=== PATIENT | female | born 1940 | race Hispanic/Latino ===

== ENCOUNTER → 2017-11-24 | Outpatient (CLI) | payer OTHER ==
[~2017-11-24] MED LIST: CHOL100040 PO; FLEX SEED OIL PO; GLUC-172 PO; LOSA1TAB37 PO; METF-444 PO; OMEP20CA10 PO; PRAV20TA4 PO; diltiazem PO
== END | disposition home or self-care (01) ==
LOC: RAH 08:32
PROVIDERS: ATTEND Family Medicine
DX: Z12.31 Encounter for screening mammogram for malignant neoplasm of breast (principal)
CPT/HCPCS: 77067

== ENCOUNTER → 2018-11-25 | Outpatient (CLI) | payer OTHER ==
[~2018-11-25] MED LIST changes: +OMEP-50 PO; -OMEP20CA10 PO
== END | disposition home or self-care (01) ==
LOC: RAH 10:13
PROVIDERS: ATTEND Family Medicine
DX: Z12.31 Encounter for screening mammogram for malignant neoplasm of breast (principal)
CPT/HCPCS: 77067

== ENCOUNTER → 2019-11-26 | Outpatient (CLI) | payer OTHER ==
[~2019-11-26] MED LIST changes: -OMEP-50 PO; +OMEP20CA12 PO
== END | disposition home or self-care (01) ==
LOC: RAH 09:26
PROVIDERS: ATTEND Family Medicine
DX: Z12.31 Encounter for screening mammogram for malignant neoplasm of breast (principal)
CPT/HCPCS: 77067

== ENCOUNTER → 2021-03-21 | Outpatient (CLI) | payer OTHER | END | disposition home or self-care (01) | LOC: RAH 13:20 | PROVIDERS: ATTEND Family Medicine | DX: Z12.31 Encounter for screening mammogram for malignant neoplasm of breast (principal) | CPT/HCPCS: 77067 ==

== ENCOUNTER 2021-06-12 14:17 | Inpatient (IN) | payer OTHER ==
[~2021-06-12] VITALS: Ht 152.4 cm; Wt 73.1 kg
[2021-06-12] MEDS ORDERED: GADOTERATE MEGLUMINE 10 MMOL/20 ML VIAL IV ONE (15:48)
[2021-06-12 15:52] LABS: BASOPHILS % (AUTO) 0.2 % (0.0-5.0); EOSINOPHILS % (AUTO) 1.2 % (0.0-8.0); HEMATOCRIT 39.5 % (36-48); LYMPHOCYTES % (AUTO) 28.7 % (21.0-51.0); MEAN CORPUSCULAR HEMOGLOBIN 26.7 pg (27.0-33.0); MEAN CORPUSCULAR HGB CONC 31.6 g/dL (32.0-36.0); MEAN CORPUSCULAR VOLUME 84.4 fL (79-99); MONOCYTES % (AUTO) 7.3 % (3.0-13.0); NEUTROPHILS % (AUTO) 62.3 % (40.0-77.0); PLATELET COUNT (AUTO) 389 K/uL (130-400); RED BLOOD CELL COUNT(AUTO) 4.68 MIL/uL (4.00-5.50); WHITE BLOOD COUNT (AUTO) 9.4 K/uL (4.8-10.8)
[2021-06-12] MEDS ORDERED: DEXAMETHASONE SOD PHOSPHATE 4 MG/ML 1ML VIAL IV ONE (16:00)
[2021-06-12 16:07] LABS: INR 0.98 (0.85-1.15); PROTHROMBIN TIME 10.7 SEC (9.6-11.6)
[2021-06-12 16:25] LABS: CREATININE 0.9 mg/dL (0.5-1.5); POTASSIUM 3.6 mmol/L (3.5-5.1)
[2021-06-12 16:30] LABS: ALBUMIN 3.7 g/dL (3.5-5.0); BILIRUBIN,TOTAL 0.2 mg/dL (0.2-1.0); TOTAL PROTEIN, SERUM 7.3 g/dL (6.0-8.3)
[2021-06-12] MEDS: LACTATED RINGERS 1000ML 1,000 ML IV SCH (17:45)
[2021-06-12] MEDS ORDERED: DEXTROSE 5%-LACTATED RINGERS 1,000 ML IV SCH (18:00)
[2021-06-12] MEDS ORDERED: DEXAMETHASONE SOD PHOSPHATE 4 MG/ML 1ML VIAL IV SCH (18:00)
[2021-06-12] MEDS ORDERED: ONDANSETRON 4MG INJ IVP PRN (18:30)
[2021-06-12] MEDS ORDERED: ALBUTEROL 0.083% 2.5 MG/3 ML INH IH PRN (18:30)
[2021-06-12] MEDS ORDERED: ACETAMINOPHEN 650 MG SUPPOSITORY RC PRN (18:30)
[2021-06-12] MEDS ORDERED: LACTULOSE 20 GM/30 ML UDCUP PO PRN (18:30)
[2021-06-12] MEDS ORDERED: TEMAZEPAM 15 MG CAPSULE PO PRN (18:30)
[2021-06-12] MEDS ORDERED: HYDRALAZINE 20MG/ML VIAL IV PRN (18:30)
[2021-06-12] MEDS ORDERED: DOCUSATE SODIUM 100 MG CAP PO PRN (18:30)
[2021-06-12] MEDS: ACETAMINOPHEN 325 MG TAB PO PRN (18:45)
[2021-06-12 19:45] VITALS: BP 175/78
[2021-06-12] MEDS: DEXAMETHASONE SOD PHOSPHATE 4 MG/ML 1ML VIAL IV SCH (22:02)
[2021-06-13] MEDS ORDERED: INSULIN HUMULIN R 100 UNIT/ML 3ML SQ SCH
[2021-06-13] MEDS: DEXAMETHASONE SOD PHOSPHATE 4 MG/ML 1ML VIAL IV SCH ×4 (03:20→20:09)
[2021-06-13 03:35] VITALS: BP 145/58
[2021-06-13 03:56] LABS: HEMATOCRIT 40.5 % (36-48); MEAN CORPUSCULAR HEMOGLOBIN 27.4 pg (27.0-33.0); MEAN CORPUSCULAR HGB CONC 33.3 g/dL (32.0-36.0); MEAN CORPUSCULAR VOLUME 82.2 fL (79-99); RED BLOOD CELL COUNT(AUTO) 4.93 MIL/uL (4.00-5.50); RED CELL DISTRIBUTION WIDTH 13.7 % (11.0-15.5); WHITE BLOOD COUNT (AUTO) 8.1 K/uL (4.8-10.8)
[2021-06-13 04:08] LABS: CREATININE 0.8 mg/dL (0.5-1.5); MAGNESIUM 1.9 mg/dL (1.80-2.40); PHOSPHORUS 2.5 mg/dL (2.5-4.9); POTASSIUM 3.8 mmol/L (3.5-5.1)
[2021-06-13 06:36] LABS: PROTHROMBIN TIME 10.9 SEC (9.6-11.6)
[2021-06-13] MEDS: INSULIN HUMULIN R 100 UNIT/ML 3ML SQ SCH ×4 (07:30→21:00)
[2021-06-13 07:48] VITALS: BP 156/68
[2021-06-13] MEDS: HEPARIN 5,000 UNIT VIAL SQ SCH ×2 (08:40→16:28)
[2021-06-13] MEDS: PANTOPRAZOLE 40 MG/VIAL IVP SCH (09:47)
[2021-06-13] MEDS: LACTATED RINGERS 1000ML 1,000 ML IV SCH ×2 (09:47→20:10)
[2021-06-13] MEDS: LOSARTAN/HYDROCHLOROTHIAZIDE 50-12.5MG TABLET PO SCH (09:47)
[2021-06-13 11:00] VITALS: BP 151/73
[2021-06-13 16:05] VITALS: BP 165/86
[2021-06-13 20:27] VITALS: BP 161/77
[2021-06-13] MEDS ORDERED: DILT240C94 PO (22:56)
[2021-06-14] VITALS (7 sets, daily range): BP systolic 120–166; BP diastolic 65–83
[2021-06-14] MEDS: DEXAMETHASONE SOD PHOSPHATE 4 MG/ML 1ML VIAL IV SCH ×4 (03:16→19:32)
[2021-06-14] MEDS: HEPARIN 5,000 UNIT VIAL SQ SCH ×2 (03:30→17:25)
[2021-06-14] MEDS: INSULIN HUMULIN R 100 UNIT/ML 3ML SQ SCH ×4 (05:26→21:09)
[2021-06-14] MEDS: PANTOPRAZOLE 40 MG/VIAL IVP SCH (09:32)
[2021-06-14] MEDS: LOSARTAN/HYDROCHLOROTHIAZIDE 50-12.5MG TABLET PO SCH (09:32)
[2021-06-14] MEDS: DILTIAZEM 120MG SR CAP PO SCH (09:33)
[2021-06-14] MEDS: ATORVASTATIN 10 MG TABLET PO SCH (19:33)
[2021-06-15] MEDS: DEXAMETHASONE SOD PHOSPHATE 4 MG/ML 1ML VIAL IV SCH ×4 (03:08→19:47)
[2021-06-15] MEDS: HEPARIN 5,000 UNIT VIAL SQ SCH ×2 (03:09→17:00)
[2021-06-15 03:59] VITALS: BP 131/66
[2021-06-15 04:43] LABS: HEMATOCRIT 37.2 % (36-48); MEAN CORPUSCULAR HEMOGLOBIN 27.6 pg (27.0-33.0); MEAN CORPUSCULAR HGB CONC 33.1 g/dL (32.0-36.0); MEAN CORPUSCULAR VOLUME 83.4 fL (79-99); RED BLOOD CELL COUNT(AUTO) 4.46 MIL/uL (4.00-5.50); RED CELL DISTRIBUTION WIDTH 13.8 % (11.0-15.5); WHITE BLOOD COUNT (AUTO) 15.2 K/uL (4.8-10.8)
[2021-06-15 04:54] LABS: CREATININE 0.8 mg/dL (0.5-1.5)
[2021-06-15] MEDS: INSULIN HUMULIN R 100 UNIT/ML 3ML SQ SCH ×4 (05:59→21:00)
[2021-06-15 07:15] VITALS: BP 150/78
[2021-06-15] MEDS: LOSARTAN/HYDROCHLOROTHIAZIDE 50-12.5MG TABLET PO SCH (10:32)
[2021-06-15] MEDS: DILTIAZEM 120MG SR CAP PO SCH (10:33)
[2021-06-15] MEDS: PANTOPRAZOLE 40 MG/VIAL IVP SCH (10:33)
[2021-06-15 11:23] VITALS: BP 156/76
[2021-06-15 16:11] VITALS: BP 139/64
[2021-06-15] MEDS: ATORVASTATIN 10 MG TABLET PO SCH (19:47)
[2021-06-15] MEDS: LEVETIRACETAM 500 MG TABLET PO SCH (19:47)
[2021-06-15 20:00] VITALS: BP 166/78
[2021-06-15 23:51] VITALS: BP 142/58
[2021-06-16] MEDS: DEXAMETHASONE SOD PHOSPHATE 4 MG/ML 1ML VIAL IV SCH ×3 (03:22→18:16)
[2021-06-16] MEDS: HEPARIN 5,000 UNIT VIAL SQ SCH ×2 (03:24→15:15)
[2021-06-16 04:32] LABS: HEMATOCRIT 37.9 % (36-48); MEAN CORPUSCULAR HEMOGLOBIN 26.7 pg (27.0-33.0); MEAN CORPUSCULAR HGB CONC 31.9 g/dL (32.0-36.0); MEAN CORPUSCULAR VOLUME 83.5 fL (79-99); RED BLOOD CELL COUNT(AUTO) 4.54 MIL/uL (4.00-5.50); RED CELL DISTRIBUTION WIDTH 13.7 % (11.0-15.5); WHITE BLOOD COUNT (AUTO) 11.9 K/uL (4.8-10.8)
[2021-06-16 04:36] LABS: CREATININE 0.9 mg/dL (0.5-1.5); POTASSIUM 4.1 mmol/L (3.5-5.1)
[2021-06-16 04:48] VITALS: BP 144/68
[2021-06-16] MEDS: INSULIN HUMULIN R 100 UNIT/ML 3ML SQ SCH ×4 (07:30→21:00)
[2021-06-16 08:22] VITALS: BP 144/74
[2021-06-16] MEDS: LOSARTAN/HYDROCHLOROTHIAZIDE 50-12.5MG TABLET PO SCH (11:04)
[2021-06-16] MEDS: PANTOPRAZOLE 40 MG/VIAL IVP SCH (11:04)
[2021-06-16] MEDS: LEVETIRACETAM 500 MG TABLET PO SCH ×2 (11:05→21:29)
[2021-06-16] MEDS: DILTIAZEM 120MG SR CAP PO SCH (11:05)
[2021-06-16 12:17] VITALS: BP 142/66
[2021-06-16 16:36] VITALS: BP 143/74
[2021-06-16 20:11] VITALS: BP 154/57
[2021-06-16] MEDS: ATORVASTATIN 10 MG TABLET PO SCH (21:29)
[2021-06-16 23:48] VITALS: BP 141/63
[2021-06-17] MEDS: DEXAMETHASONE SOD PHOSPHATE 4 MG/ML 1ML VIAL IV SCH ×4 (02:01→17:56)
[2021-06-17 03:59] VITALS: BP 155/66
[2021-06-17] MEDS: INSULIN HUMULIN R 100 UNIT/ML 3ML SQ SCH ×4 (07:06→21:39)
[2021-06-17 08:04] VITALS: BP 140/62
[2021-06-17] MEDS: PANTOPRAZOLE 40 MG/VIAL IVP SCH (08:44)
[2021-06-17] MEDS: LEVETIRACETAM 500 MG TABLET PO SCH ×2 (08:44→21:38)
[2021-06-17] MEDS: DILTIAZEM 120MG SR CAP PO SCH (08:45)
[2021-06-17] MEDS: LOSARTAN/HYDROCHLOROTHIAZIDE 50-12.5MG TABLET PO SCH (08:45)
[2021-06-17 12:19] VITALS: BP 156/57
[2021-06-17 17:09] VITALS: BP 132/56
[2021-06-17 20:17] VITALS: BP 146/63
[2021-06-17] MEDS: ATORVASTATIN 10 MG TABLET PO SCH (21:38)
[2021-06-17 23:52] VITALS: BP 137/62
[2021-06-18] VITALS (30 sets, daily range): BP systolic 94–186; BP diastolic 42–114
[2021-06-18] MEDS: DEXAMETHASONE SOD PHOSPHATE 4 MG/ML 1ML VIAL IV SCH ×5 (00:01→23:34)
[2021-06-18] MEDS: INSULIN HUMULIN R 100 UNIT/ML 3ML SQ SCH ×4 (06:55→20:15)
[2021-06-18] MEDS ORDERED: BUPIVACAINE/EPI/PF 0.5% 30ML VIAL IJ ONE (06:58)
[2021-06-18] MEDS ORDERED: THROMBIN-JMI 20000 UNIT KIT TP ONE (06:58)
[2021-06-18] MEDS ORDERED: CEFAZOLIN SODIUM 1 GM VIAL IVP PRN (07:00)
[2021-06-18] MEDS ORDERED: PHENYLEPHRINE HCL 10 MG/ML 1ML VIAL IV ONE ×2 (07:16→07:31)
[2021-06-18] MEDS ORDERED: SUCCINYLCHOLINE CHLORIDE 20 MG/ML 10 ML VIAL ONE (07:16)
[2021-06-18] MEDS ORDERED: LIDOCAINE PF 100MG/5ML (2%) SYRINGE 5ML ONE (07:16)
[2021-06-18] MEDS ORDERED: ROCURONIUM 10MG/1ML SYR 10 MG/ML ML ONE ×2 (07:16→08:10)
[2021-06-18] MEDS ORDERED: FENTANYL CITRATE PF 50 MCG/1 ML 2ML VIAL ONE ×2 (07:16→08:42)
[2021-06-18] MEDS ORDERED: PROPOFOL 10 MG/ML 20ML VIAL IV ONE (07:16)
[2021-06-18] MEDS: CEFAZOLIN SODIUM 1 GM VIAL ONE ×2 (07:30→12:30)
[2021-06-18] MEDS ORDERED: CEFAZOLIN SODIUM 1 GM VIAL ONE ×3 (07:52→09:50)
[2021-06-18] MEDS ORDERED: MANNITOL 20% 500ML BAG 500 ML IV ONE (07:52)
[2021-06-18] MEDS ORDERED: DEXAMETHASONE SOD PHOSPHATE 10MG/ML 1ML VIAL ONE (07:54)
[2021-06-18] MEDS ORDERED: GLYCOPYRROLATE 1 MG/5 ML SYRINGE ONE (08:29)
[2021-06-18] MEDS: LOSARTAN/HYDROCHLOROTHIAZIDE 50-12.5MG TABLET PO SCH (09:00)
[2021-06-18] MEDS: DILTIAZEM 120MG SR CAP PO SCH (09:00)
[2021-06-18] MEDS: LEVETIRACETAM 500 MG TABLET PO SCH ×2 (09:00→19:49)
[2021-06-18] MEDS ORDERED: ONDANSETRON 4MG INJ ONE (11:54)
[2021-06-18] MEDS ORDERED: NEOSTIGMINE 5MG/5ML SYR IV ONE (11:54)
[2021-06-18] MEDS ORDERED: HYDRALAZINE 20MG/ML VIAL ONE (12:19)
[2021-06-18] MEDS ORDERED: LACTATED RINGERS 1000ML 1,000 ML IV SCH (12:30)
[2021-06-18] MEDS: ACETAMINOPHEN 325 MG TAB PO PRN (19:49)
[2021-06-18] MEDS: ATORVASTATIN 10 MG TABLET PO SCH (19:49)
[2021-06-18] MEDS: CEFAZOLIN SODIUM 1 GM VIAL IVP SCH (19:50)
[2021-06-18] MEDS ORDERED: PHARMACY COMMUNICATION MISC SCH (21:00)
[2021-06-18] MEDS ORDERED: DILTIAZEM 120 MG PO SCH (21:00)
[2021-06-18] MEDS ORDERED: HYDRALAZINE HCL 10 MG TABLET PO PRN (21:30)
[2021-06-19] VITALS (43 sets, daily range): BP systolic 124–176; BP diastolic 46–88
[2021-06-19] MEDS: HYDRALAZINE HCL 10 MG TABLET PO PRN ×3 (00:28→07:41)
[2021-06-19] MEDS: CEFAZOLIN SODIUM 1 GM VIAL IVP SCH (03:17)
[2021-06-19] MEDS: ACETAMINOPHEN 325 MG TAB PO PRN ×2 (03:18→21:20)
[2021-06-19 03:50] LABS: HEMATOCRIT 40.4 % (36-48); MEAN CORPUSCULAR HEMOGLOBIN 27.3 pg (27.0-33.0); MEAN CORPUSCULAR HGB CONC 33.2 g/dL (32.0-36.0); MEAN CORPUSCULAR VOLUME 82.4 fL (79-99); RED BLOOD CELL COUNT(AUTO) 4.9 MIL/uL (4.00-5.50); RED CELL DISTRIBUTION WIDTH 14.3 % (11.0-15.5); WHITE BLOOD COUNT (AUTO) 20.2 K/uL (4.8-10.8)
[2021-06-19 04:11] LABS: CREATININE 0.9 mg/dL (0.5-1.5); MAGNESIUM 2.2 mg/dL (1.80-2.40); POTASSIUM 4.3 mmol/L (3.5-5.1)
[2021-06-19] MEDS: INSULIN HUMULIN R 100 UNIT/ML 3ML SQ SCH ×4 (05:08→21:11)
[2021-06-19] MEDS: DEXAMETHASONE SOD PHOSPHATE 4 MG/ML 1ML VIAL IV SCH ×3 (05:37→17:13)
[2021-06-19] MEDS: METFORMIN HCL 500 MG TABLET PO SCH (08:04)
[2021-06-19] MEDS: FLEX SEED OIL PO SCH (08:04)
[2021-06-19] MEDS: OSTEO BI FLEX PO SCH (08:04)
[2021-06-19] MEDS: LOSARTAN/HYDROCHLOROTHIAZIDE 50-12.5MG TABLET PO SCH (08:04)
[2021-06-19] MEDS: PANTOPRAZOLE 40 MG TAB DR PO SCH (08:04)
[2021-06-19] MEDS: LEVETIRACETAM 500 MG TABLET PO SCH ×2 (08:04→21:06)
[2021-06-19] MEDS: DILTIAZEM 120MG SR CAP PO SCH (08:04)
[2021-06-19] MEDS: **HM** VIT D3 1000 UNITS PO SCH (08:05)
[2021-06-19] MEDS ORDERED: LOSARTAN/HYDROCHLOROTHIAZIDE 50-12.5MG TABLET PO SCH (09:00)
[2021-06-19] MEDS: ATORVASTATIN 10 MG TABLET PO SCH (21:05)
[2021-06-20] MEDS: DEXAMETHASONE SOD PHOSPHATE 4 MG/ML 1ML VIAL IV SCH ×2 (00:50→07:30)
[2021-06-20 03:58] LABS: BASOPHILS % (AUTO) 0.2 % (0.0-5.0); HEMATOCRIT 37.8 % (36-48); LYMPHOCYTES % (AUTO) 5.6 % (21.0-51.0); MEAN CORPUSCULAR HEMOGLOBIN 26.6 pg (27.0-33.0); MEAN CORPUSCULAR VOLUME 83.1 fL (79-99); MONOCYTES % (AUTO) 6.4 % (3.0-13.0); NEUTROPHILS % (AUTO) 86.6 % (40.0-77.0); PLATELET COUNT (AUTO) 333 K/uL (130-400); RED BLOOD CELL COUNT(AUTO) 4.55 MIL/uL (4.00-5.50); RED CELL DISTRIBUTION WIDTH 14.4 % (11.0-15.5); WHITE BLOOD COUNT (AUTO) 17.9 K/uL (4.8-10.8)
[2021-06-20 04:08] VITALS: BP 127/56
[2021-06-20 04:16] LABS: ALBUMIN 2.4 g/dL (3.5-5.0); BILIRUBIN,TOTAL 0.4 mg/dL (0.2-1.0); CREATININE 0.8 mg/dL (0.5-1.5); MAGNESIUM 2.3 mg/dL (1.80-2.40); PHOSPHORUS 3.3 mg/dL (2.5-4.9); POTASSIUM 4.5 mmol/L (3.5-5.1); TOTAL PROTEIN, SERUM 5.1 g/dL (6.0-8.3)
[2021-06-20] MEDS: INSULIN HUMULIN R 100 UNIT/ML 3ML SQ SCH ×3 (07:29→16:51)
[2021-06-20 08:38] VITALS: BP 133/63
[2021-06-20] MEDS: OSTEO BI FLEX PO SCH (09:00)
[2021-06-20] MEDS: **HM** VIT D3 1000 UNITS PO SCH (09:00)
[2021-06-20] MEDS: FLEX SEED OIL PO SCH (09:00)
[2021-06-20] MEDS: METFORMIN HCL 500 MG TABLET PO SCH (09:47)
[2021-06-20] MEDS: DILTIAZEM 120MG SR CAP PO SCH (09:47)
[2021-06-20] MEDS: PANTOPRAZOLE 40 MG TAB DR PO SCH (09:48)
[2021-06-20] MEDS: LOSARTAN/HYDROCHLOROTHIAZIDE 50-12.5MG TABLET PO SCH (09:48)
[2021-06-20] MEDS: LEVETIRACETAM 500 MG TABLET PO SCH (09:48)
[2021-06-20 12:42] VITALS: BP 133/73
[2021-06-20 16:56] VITALS: BP 131/56
== END 2021-06-20 18:30 | disposition home or self-care (01) | DRG 27 ==
LOC: EDH 14:17 → INTOOBSV 17:33 → OBSVTOIN 17:33 → EDHIP 17:33 → 4BH 19:48 → 2BH 06-18 12:32 → 2DH 06-19 22:56
PROVIDERS: ADMIT Internal Medicine Critical Care Medicine; ATTEND Internal Medicine Critical Care Medicine
PROC: 00B10ZZ Excision of Cerebral Meninges, Open Approach (ICD-10-PCS; principal; 2021-06-18 07:30)
PROC: B24BZZ4 Ultrasonography of Heart with Aorta, Transesophageal (ICD-10-PCS; 2021-06-18 07:30)
DX: D32.0 Benign neoplasm of cerebral meninges (principal); E11.9 Type 2 diabetes mellitus without complications; I10 Essential (primary) hypertension; I25.10 Atherosclerotic heart disease of native coronary artery without angina pectoris; R94.39 Abnormal result of other cardiovascular function study; E78.00 Pure hypercholesterolemia, unspecified; E78.5 Hyperlipidemia, unspecified; Z20.822 Contact with and (suspected) exposure to COVID-19; K21.9 Gastro-esophageal reflux disease without esophagitis; Z79.84 Long term (current) use of oral hypoglycemic drugs; Z79.899 Other long term (current) drug therapy; Z87.442 Personal history of urinary calculi; Z90.710 Acquired absence of both cervix and uterus
CPT/HCPCS: 36415; 70450; 70544; 70553; 71045; 80048; 80053; 82948; 83615; 83735; 83880; 84100; 84145; 85025; 85027; 85610; 86850; 86900; 86901; 87635; 93005; 97039; 99291; A4344; C1713; C9113; G0378; J0330; J0360; J0690; J1100; J1644; J1815; J2001; J2370; J2405; J2704; J2710; J3010; J3490; J7030; J7040; J7120

== ENCOUNTER → 2021-07-18 | Outpatient (CLI) | payer OTHER ==
[~2021-07-18] MED LIST changes: +DILT240C94 PO; -diltiazem PO
[2021-07-18 10:08] LABS: CREATININE 0.8 mg/dL (0.5-1.5)
== END | disposition home or self-care (01) ==
LOC: LAB 09:05
PROVIDERS: ATTEND Neurological Surgery
DX: D33.2 Benign neoplasm of brain, unspecified (principal)
CPT/HCPCS: 36415; 82565; 84520

== ENCOUNTER → 2021-07-30 | Outpatient (CLI) | payer OTHER ==
[~2021-07-30] MED LIST changes: +GADOTERATE MEGLUMINE 10 MMOL/20 ML VIAL IV ONE
== END | disposition home or self-care (01) ==
LOC: RAH 07:55
PROVIDERS: ATTEND Neurological Surgery
DX: D33.2 Benign neoplasm of brain, unspecified (principal)
CPT/HCPCS: 70553; A9575

== ENCOUNTER → 2022-05-07 | Outpatient (CLI) | payer OTHER ==
[~2022-05-07] MED LIST changes: -GADOTERATE MEGLUMINE 10 MMOL/20 ML VIAL IV ONE
== END | disposition home or self-care (01) ==
LOC: RAH 09:59
PROVIDERS: ATTEND Nurse Practitioner Family
DX: Z12.31 Encounter for screening mammogram for malignant neoplasm of breast (principal)
CPT/HCPCS: 77067

== ENCOUNTER → 2023-05-30 | Outpatient (CLI) | payer OTHER ==
[~2023-05-30] MED LIST changes: +DILT240C81 PO; -DILT240C94 PO
== END | disposition home or self-care (01) ==
LOC: RAH 11:06
PROVIDERS: ATTEND Family Medicine
DX: Z12.31 Encounter for screening mammogram for malignant neoplasm of breast (principal)
CPT/HCPCS: 77067